=== PATIENT | female | born 1955 | race Hispanic/Latino ===

== ENCOUNTER 2021-08-06 17:16 | Inpatient (IN) | payer MEDICARE ==
[2021-08-06] MEDS ORDERED: Sodium Chloride 0.9% 1,000 ML IV SCH (20:45)
[2021-08-06] MEDS ORDERED: Ondansetron PF 4 MG/2 ML Vial IVP PRN (20:45)
[2021-08-06] MEDS ORDERED: Ondansetron ODT 4 MG TAB SL PRN (20:45)
[2021-08-06] MEDS: Ondansetron PF 4 MG/2 ML Vial IVP PRN (21:20)
[2021-08-06] MEDS ORDERED: Acetaminophen 650 MG Suppository PR PRN (21:27)
[2021-08-06] MEDS ORDERED: Acetaminophen 325 MG TAB PO PRN (21:27)
[2021-08-06] MEDS ORDERED: Lidocaine 2% Jelly 5 ML TUBE TOP SCH (21:30)
[2021-08-06] MEDS ORDERED: Benzocaine 20% Spray 60 ML CAN FS SCH (21:30)
[2021-08-06] MEDS ORDERED: hydrALAZINE 20 MG/ML VIAL SLOW IVP PRN (21:31)
[2021-08-06] MEDS: Morphine 4 MG/ML VIAL SLOW IVP PRN (21:40)
[2021-08-06] MEDS: Morphine 2 MG/ML VIAL ONE ×2 (22:17→22:18)
[2021-08-06] MEDS: Sodium Chloride 0.9% 1,000 ML IV SCH (22:19)
[2021-08-06] MEDS ORDERED: Promethazine HCl 12.5 MG in Sodium Chloride 0.9% 50 ML IVPB PRN (22:33)
[2021-08-06 22:46] VITALS: BMI 15.5
[2021-08-07] MEDS: Morphine 4 MG/ML VIAL SLOW IVP PRN ×3 (04:50→14:07)
[2021-08-07] MEDS: Sodium Chloride 0.9% 1,000 ML IV SCH (04:58)
[2021-08-07 06:12] LABS: #Lymphocytes 1.5 thou/uL (1.20-3.40); #Monocytes 0.4 thou/uL (0.11-0.59); #Neutrophils 8.1 thou/uL (1.40-6.50); %Basophils 0.1 % (0.0-1.0); %Eosinophils 0.1 % (0.0-10.0); %Lymphocytes 14.7 % (21.0-51.0); %Monocytes 3.6 % (0.0-10.0); %Neutrophils 81.4 % (42.0-75.0); Hemoglobin 14.4 g/dL (12.0-16.0); Mean Corpuscular HGB CONC 33.4 g/dL (32.0-36.0); Mean Corpuscular Hemoglobin 33.7 pg (27.0-31.0); Mean Platelet Volume 8.1 fL (7.4-10.4); Platelet Count 232 thou/uL (130-400); RBC Distribution Width 11.9 % (11.5-14.5); Red Blood Cell (RBC) Count 4.28 mill/uL (4.20-5.40)
[2021-08-07 06:37] LABS: Anion Gap 15 mmol/L (10-20); BUN (Urea Nitrogen) 12 mg/dL (9.8-20.1); Calc. Creatinine Clearance 43 mL/min (70-130); Calcium 9.2 mg/dL (7.8-10.44); Carbon Dioxide 21 mmol/L (23-31); Chloride 105 mmol/L (98-107); Glucose 112 mg/dL (80-115); Potassium 4.2 mmol/L (3.5-5.1); Sodium 137 mmol/L (136-145)
[2021-08-07] MEDS: Ondansetron PF 4 MG/2 ML Vial IVP PRN (14:03)
[2021-08-07] MEDS ORDERED: Morphine 4 MG/ML VIAL ONE (14:06)
[2021-08-08] MEDS: Sodium Chloride 0.9% 1,000 ML IV SCH ×3 (02:32→19:23)
[2021-08-08 06:32] LABS: #Eosinphils 0.1 thou/uL (0.0-0.7); #Lymphocytes 2.5 thou/uL (1.20-3.40); #Monocytes 0.7 thou/uL (0.11-0.59); #Neutrophils 6.3 thou/uL (1.40-6.50); %Basophils 0.4 % (0.0-1.0); %Eosinophils 0.5 % (0.0-10.0); %Lymphocytes 25.8 % (21.0-51.0); %Monocytes 7.5 % (0.0-10.0); %Neutrophils 65.8 % (42.0-75.0); Hemoglobin 13.2 g/dL (12.0-16.0); Mean Corpuscular HGB CONC 32.5 g/dL (32.0-36.0); Mean Corpuscular Hemoglobin 33.2 pg (27.0-31.0); Mean Platelet Volume 8.2 fL (7.4-10.4); Platelet Count 218 thou/uL (130-400); RBC Distribution Width 11.7 % (11.5-14.5); Red Blood Cell (RBC) Count 3.97 mill/uL (4.20-5.40); White Blood Cell (WBC) Count 9.6 thou/uL (4.8-10.8)
[2021-08-08 06:47] LABS: Anion Gap 11 mmol/L (10-20); BUN (Urea Nitrogen) 14 mg/dL (9.8-20.1); Calc. Creatinine Clearance 47 mL/min (70-130); Calcium 8.8 mg/dL (7.8-10.44); Carbon Dioxide 23 mmol/L (23-31); Chloride 108 mmol/L (98-107); Glucose 63 mg/dL (80-115); Potassium 4.1 mmol/L (3.5-5.1); Sodium 138 mmol/L (136-145)
[2021-08-08] MEDS ORDERED: GoLYTELY 4,000 ml Bottle PO SCH (19:45)
[2021-08-08] MEDS: Ondansetron PF 4 MG/2 ML Vial IVP PRN (21:36)
[2021-08-08] MEDS: Morphine 4 MG/ML VIAL SLOW IVP PRN (21:39)
[2021-08-09] MEDS: Sodium Chloride 0.9% 1,000 ML IV SCH ×3 (04:49→21:45)
[2021-08-09 06:01] LABS: #Lymphocytes 1.4 thou/uL (1.20-3.40); #Monocytes 0.7 thou/uL (0.11-0.59); #Neutrophils 6.6 thou/uL (1.40-6.50); %Basophils 0.3 % (0.0-1.0); %Eosinophils 0.3 % (0.0-10.0); %Lymphocytes 15.6 % (21.0-51.0); %Monocytes 8.4 % (0.0-10.0); %Neutrophils 75.4 % (42.0-75.0); Hemoglobin 13.1 g/dL (12.0-16.0); Mean Corpuscular HGB CONC 33.2 g/dL (32.0-36.0); Mean Corpuscular Hemoglobin 33.6 pg (27.0-31.0); Platelet Count 194 thou/uL (130-400); RBC Distribution Width 11.5 % (11.5-14.5); Red Blood Cell (RBC) Count 3.91 mill/uL (4.20-5.40); White Blood Cell (WBC) Count 8.8 thou/uL (4.8-10.8)
[2021-08-09 06:19] LABS: Anion Gap 9 mmol/L (10-20); BUN (Urea Nitrogen) 10 mg/dL (9.8-20.1); Calc. Creatinine Clearance 53 mL/min (70-130); Calcium 8.2 mg/dL (7.8-10.44); Carbon Dioxide 23 mmol/L (23-31); Chloride 108 mmol/L (98-107); Glucose 93 mg/dL (80-115); Potassium 4.1 mmol/L (3.5-5.1); Sodium 136 mmol/L (136-145)
[2021-08-09] MEDS ORDERED: Fentanyl 100 MCG/2 ML VIAL ONE (08:44)
[2021-08-09] MEDS ORDERED: PROPOFOL 200 MG/20 ML VIAL ONE (08:57)
[2021-08-10 12:05] VITALS: BP 145/66; TEMP 98.6
[2021-08-10] MEDS ORDERED: AMOXicillin 250 MG CAP PO SCH (13:15)
[2021-08-10] MEDS ORDERED: Clarithromycin 500 MG TAB PO SCH (13:15)
== END 2021-08-10 15:00 | disposition home or self-care (01) | DRG 388 ==
LOC: SURG A 17:16 → OBSVTOIN 21:26
PROVIDERS: ADMIT Internal Medicine; ATTEND Hospitalist
PROC: 0DB68ZX Excision of Stomach, Via Natural or Artificial Opening Endoscopic, Diagnostic (ICD-10-PCS; principal; 2021-08-09)
PROC: 0DBH8ZX Excision of Cecum, Via Natural or Artificial Opening Endoscopic, Diagnostic (ICD-10-PCS; 2021-08-09)
PROC: 0DBK8ZX Excision of Ascending Colon, Via Natural or Artificial Opening Endoscopic, Diagnostic (ICD-10-PCS; 2021-08-09)
PROC: 0DBM8ZX Excision of Descending Colon, Via Natural or Artificial Opening Endoscopic, Diagnostic (ICD-10-PCS; 2021-08-09)
DX: K56.600 Partial intestinal obstruction, unspecified as to cause (principal); E43 Unspecified severe protein-calorie malnutrition; Z68.1 Body mass index [BMI] 19.9 or less, adult; I10 Essential (primary) hypertension; R19.00 Intra-abdominal and pelvic swelling, mass and lump, unspecified site; K64.8 Other hemorrhoids; K64.4 Residual hemorrhoidal skin tags; B96.81 Helicobacter pylori [H. pylori] as the cause of diseases classified elsewhere; K52.832 Lymphocytic colitis; D12.2 Benign neoplasm of ascending colon; K29.70 Gastritis, unspecified, without bleeding; D12.4 Benign neoplasm of descending colon; F17.210 Nicotine dependence, cigarettes, uncomplicated; E78.5 Hyperlipidemia, unspecified; Z90.710 Acquired absence of both cervix and uterus; Z98.890 Other specified postprocedural states; Z71.6 Tobacco abuse counseling
CPT/HCPCS: 36415; 36416; 71045; 74018; 76856; 80048; 82105; 82378; 85025; 86301; 86304; 88305; 88312; J0360; J2270; J2405; J2550; J2704; J3010; J7050; J7620